=== PATIENT | male | born 1995 | race African-American/Black ===

== ENCOUNTER 2019-03-23 19:49 | Emergency (ER) | payer SELFPAY ==
[~2019-03-23] VITALS: Ht 177.8 cm; Wt 85.7 kg
[2019-03-23 19:51] VITALS: BP 118/79
[2019-03-23] MEDS ORDERED: FLUORESCEIN OPHTHALMIC 1 MG STRIP ONE (20:17)
== END 2019-03-23 21:03 | disposition home or self-care (01) ==
LOC: ED 20:58
DX: H16.292 Other keratoconjunctivitis, left eye (principal)
CPT/HCPCS: 99283